=== PATIENT | female | born 1970 | race Caucasian/White ===

== ENCOUNTER → 2018-04-06 | Outpatient (CLI) | payer BC ==
[~2018-04-06] MED LIST: IOHEXOL 350 MG/ML 100 ML (OMNIPAQUE 350) VIAL IV ONE; NS 250 ML (IVPB) BAG IV ONE
--- NOTE | 2018-04-06 14:10 | Diagnostic Imaging Report ---
PROCEDURE: CT abdomen with and without contrast. TECHNIQUE: Multiple contiguous axial CT images of the abdomen were obtained prior to and after intravenous administration of iodinated contrast. INDICATION: Left flank pain and left upper posterior pain for 11 days. No prior studies are available for comparison. The lung bases are clear. The liver demonstrates diffuse low density consistent with hepatic steatosis. No discrete liver mass is identified. The gallbladder is unremarkable. The pancreas and spleen are unremarkable. A right adrenal gland does contain a 16 mm low-density nodule within the lateral limb, suggestive of a small adenoma. Left adrenal gland is unremarkable. The kidneys are without calculi or hydronephrosis. Aorta is non-aneurysmal. There are multiple mildly prominent lymph nodes in the central retroperitoneum as well as central mesentery, exact etiology indeterminate. The bowel loops are nondilated. There is no ascites. IMPRESSION: 1. Hepatic steatosis. 2. Right adrenal nodule, likely adrenal adenoma. Followup could be obtained to confirm stability. 3. There are multiple mildly prominent lymph nodes in the central mesentery and central retroperitoneum. Exact etiology is indeterminate. While these may be reactive secondary to an infectious/inflammatory etiology, other etiologies such as a lymphoproliferative disorder cannot be entirely excluded. Close interval followup could be recommended. Consideration could be given to performance of the PET/CT. Dictated by: Dictated on workstation # [id number]
== END ==
LOC: RAD 13:01
PROVIDERS: ATTEND Nurse Practitioner Family
DX: K76.0 Fatty (change of) liver, not elsewhere classified (principal); E27.8 Other specified disorders of adrenal gland; K80.20 Calculus of gallbladder without cholecystitis without obstruction
CPT/HCPCS: 74170